=== PATIENT | male | born 1945 | race Caucasian/White ===

== ENCOUNTER → 2016-09-12 | Day surgery (SDC) | payer MEDICARE, OTHER ==
[~2016-09-12] MED LIST: AMLODIPINE BESY10 MG PO; B COMPLEX1 TAB PO; BENADRYL25 M3 PO; BENAZEPRIL HCL10 M2 PO; COUMADIN4 MG PO; GABAPENTIN300 MG PO; HCTZ; HYDROCHLOROTHIA25 MG PO; HYDROCODON-ACE1 EAC5 PO; HYDROCODON-ACE1 EAC7 PO; LASIX; LASIX PO; LORCET PLUS 7.1 EACH PO; LORTAB 7.5-3251 EACH PO; LOTENSIN20 MG PO; NEURONTIN300 MG PO; OCUVITE TABLET1 TA1 PO; TOPROL XL; TOPROL XL PO; TOPROL XL100 MG PO; VISION VITAMIN1 EACH PO; VITAMIN B-125000 MC1 PO
--- NOTE | ~2016-09-12 | HP ---
Unit #: [id number] #: [id number] Patient: MARIE WAGNER [id number] [address] [place], [place] [address] [id number] O MR#: [id number] NAME: MARIE WAGNER. ROOM: Age: 71 Sex: M Admission Date: 09/12/2016 : 1945 Attending Physician: Rolando Eli M.D. Referring Physician: Rolando Eli M.D. Primary Care Physician: Timmy Mane M.D. HISTORY AND PHYSICAL HISTORY AND EXAM Mr. Wagner is a 71-year-old gentleman who has had a previous tubulovillous polyp of the cecum that was surgically excised. He is due for surveillance colonoscopy. He is otherwise asymptomatic. PAST MEDICAL HISTORY 1. Hypertension. 2. Osteoarthritis. 3. Hypercholesterolemia. 4. History of spinal stenosis, status post surgery. 5. Bilateral knee replacement. 6. Left hip replacement. 7. Colonoscopy with polypectomy. 8. Appendectomy. 9. Prostate biopsy. 10. Macular degeneration. ALLERGIES No allergies to medications. MEDICATIONS Medications include: 1. Lotensin. 2. Toprol. 3. Hydrochlorothiazide. 4. Amlodipine. 5. Lasix. 6. Ocuvite. 7. Lortab. 8. Neurontin. 9. Vitamin B complex. FAMILY HISTORY Heart disease. SOCIAL HISTORY , two children. Denies the use of alcohol or tobacco. He is retired. REVIEW OF SYSTEMS Unremarkable. PHYSICAL EXAMINATION VITAL SIGNS: Temperature 98.9, blood pressure 123/73, heart rate 71 and Unit #: [id number] #: [id number] Patient: MARIE WAGNER regular, respirations 18. GENERAL: Awake, alert and oriented. HEENT: Unremarkable. CARDIAC: Regular rate and rhythm. LUNGS: Clear. ABDOMEN: Soft. EXTREMITIES: No edema. NEUROLOGICAL: Grossly intact. ASSESSMENT AND PLAN 71-year-old gentleman who is due for surveillance colonoscopy because of a history of a large polyp of the cecum that required surgical resection. He is otherwise asymptomatic at this time. We discussed the procedure including risks, benefits, complications, bowel prep. He understands and agrees to proceed. Dictated by Rolando Eli M.D. NENA/tj TD: 09/12/2016 07:49 JOB #: [id number] HISTORY AND PHYSICAL Page 1 of 1 X Rolando Eli MD HISTORY AND PHYSICAL
--- NOTE | ~2016-09-12 | OR ---
Unit #: [id number] #: [id number] Patient: MARIE WAGNER [id number] [facility]. [place], [place] [address] [id number] O MR#: [id number] NAME: MARIE WAGNER ROOM: Date of Procedure: 09/12/2016 Admission Date: 09/12/2016 Surgeon: Rolando Eli M.D. : 1945 Attending Physician: Rolando Eli M.D. Referring Physician: Rolando Eli M.D. Primary Care Physician: Timmy Mane M.D. OPERATIVE REPORT PRIMARY CARE PHYSICIAN Timmy Mane M.D. PREOPERATIVE DIAGNOSIS History of tubulovillous adenoma of cecum. POSTOPERATIVE DIAGNOSES Small cecal polyp and mild sigmoid diverticulosis. PROCEDURE PERFORMED Colonoscopy to cecum with cold biopsy forceps polypectomy x1 ANESTHESIA Monitored anesthesia. INDICATIONS FOR PROCEDURE A 71-year-old gentleman, who has had a previous large tubulovillous polyp of the cecum that was benign biopsy. It was too large to remove and he underwent a surgical excision. He is due for surveillance. DESCRIPTION OF PROCEDURE The patient was admitted to [facility], positively identified, and transported to the endoscopy unit. After appropriate monitoring and positioning, he was sedated by the nurse farm crew leader. On rectal examination, there was no significant anorectal pathology and the prostate was not abnormal to digital examination. Colonoscope was passed through the anal verge throughout the extent of the colon to the cecum. In the base of the cecum, there was a small area that I could not grossly tell might be some scar tissue or mucosal abnormality from his previous resection or if small 5 mm polyp. The area was completely excised using the cold biopsy forceps and sent to the laboratory. On antegrade and retrograde visualization, he had a few scattered diverticula on the sigmoid colon, but no other polyps, masses, or mucosal abnormalities were seen. The patient tolerated the procedure well and transported to recovery in stable condition. Findings were discussed with his . We will call him with results of the pathological evaluation of the biopsies and recommend followup at that time. Dictated by... Rolando Eli M.D. Unit #: [id number] #: [id number] Patient: MARIE WAGNER/agustin TD: 09/12/2016 08:12 JOB #: [id number] OPERATIVE REPORT Page 1 of 1 X Rolando Eli MD PROCEDURE OPERATIVE NOTE
== END | disposition home or self-care (01) ==
LOC: COPS 05:28
DX: Z12.11 Encounter for screening for malignant neoplasm of colon (principal); D12.0 Benign neoplasm of cecum; K57.30 Diverticulosis of large intestine without perforation or abscess without bleeding; Z86.010 Personal history of colon polyps; I10 Essential (primary) hypertension; M19.90 Unspecified osteoarthritis, unspecified site; E78.00 Pure hypercholesterolemia, unspecified; Z96.653 Presence of artificial knee joint, bilateral; Z96.642 Presence of left artificial hip joint; Z82.49 Family history of ischemic heart disease and other diseases of the circulatory system
CPT/HCPCS: 88305

== ENCOUNTER → 2017-01-01 | Outpatient (CLI) | payer MEDICARE, OTHER ==
--- NOTE | ~2017-01-01 | EKG ---
PATIENT: MARIE WAGNER UNIT #: [id number] Ventricular Rate: 68 BPM Atrial Rate: 68 BPM P-R Interval: 200 ms QRS Duration: 86 ms Q-T Interval: 408 ms QTC Calculation(Bezet): 433 ms P [place]: 27 degrees Calculated R [place]: 5 degrees Calculated T [place]: -2 degrees Diagnosis Line: Normal sinus rhythm Diagnosis Line: Normal ECG Diagnosis Line: When compared with ECG of 07-JUL-2015 11:21, Diagnosis Line: No significant change was found Diagnosis Line: Confirmed by COY LOU MD ([id number]) on Diagnosis Line: 01/01/2017 4:26:22 PM INTERPRETING MD: NORI
[2017-01-01 10:38] LABS: HEMATOCRIT 47.1 % (38.0-50.0); HEMOGLOBIN 15.5 gm/dL (13.0-16.0); MEAN CELL VOLUME 86.9 FL (83-96); MEAN CORPUSCULAR HEMOGLOBIN 28.7 PG (28-34); MEAN PLATELET VOLUME 9.8 FL (6.5-11.5); RED BLOOD COUNT 5.42 X10e (3.90-5.60); RED CELL DISTRIBUTION WIDTH 13.9 % (11.0-15.5); WHITE BLOOD COUNT 6.2 X10e3 (4.0-10.5)
[2017-01-01 11:02] LABS: CREATININE SERUM 0.9 mg/dL (0.6-1.4); GLOM FILT RATE Estimated 86.8 mL/min (>60)
== END | disposition home or self-care (01) ==
LOC: CAMB 09:52
PROVIDERS: Specialist
DX: Z01.818 Encounter for other preprocedural examination (principal); L72.0 Epidermal cyst
CPT/HCPCS: 36415; 80048; 85027; 93005

== ENCOUNTER → 2017-01-08 | Day surgery (SDC) | payer MEDICARE, OTHER ==
--- NOTE | ~2017-01-08 | OR ---
Unit #: [id number] #: [id number] Patient: MARIE WAGNER [id number] [facility]. [place], [place] [address] [id number] O MR#: [id number] NAME: MARIE WAGNER. ROOM: Date of Procedure: 01/08/2017 Admission Date: 01/08/2017 Surgeon: Rolando Eli M.D. : 1945 Attending Physician: Rolando Eli M.D. Primary Care Physician: Timmy Mane M.D. OPERATIVE REPORT PREOPERATIVE DIAGNOSIS Chronic recurrent sebaceous cyst of the back. POSTOPERATIVE DIAGNOSIS Chronic recurrent sebaceous cyst of the back. PROCEDURE PERFORMED Incisional biopsy of 4 x 2 cm sebaceous cyst at the base of the neck and a 5 x 3 cm cyst in the mid paraspinal area. ANESTHESIA General endotracheal anesthesia. ESTIMATED BLOOD LOSS 20 mL. INDICATIONS FOR PROCEDURE A 71-year-old gentleman, who has had longstanding sebaceous gland that he has treated conservatively and recently, he had several episodes of enlargement and infection. They were too large to remove in the office. So, we started the patient on antibiotics and brought him into the operating room today for definitive excision to prevent chronic recurrence and infection. DESCRIPTION OF PROCEDURE The patient was admitted to [facility], positively identified, transported to the operating room, and after induction of general endotracheal anesthesia, he received 1.5 g of vancomycin IV. He was placed in a lateral position with an axillary roll and appropriate padding on all pressure points and held in position using a beanbag. After being prepped and draped in usual sterile fashion, a wedge excision around both lesions was performed and then the cyst was excised en bloc with a cuff of normal tissue. I irrigated with saline and Betadine and obtained hemostasis. The deep space was closed with 2-0 Vicryl interrupted suture and the skin was closed with 2-0 nylon vertical mattress suture at the base of the neck. In the paraspinal area, again, a wedge excision with complete en bloc excision was performed. Again, I irrigated with saline and Betadine and closed the deep space with 2-0 Vicryl and the reapproximated the skin with 2-0 nylon. At both sites, 0.5% Marcaine with epinephrine was infiltrated for postop pain control. He had an exophytic seborrheic keratoses on his back which we scraped off the skin and applied Neosporin and Band-Aid. Telfa and Tegaderm were Unit #: [id number] #: [id number] Patient: MARIE WAGNER placed as occlusive sterile dressing. Sponges and needle counts were correct x3. The patient tolerated the procedure well and was transported to recovery in stable condition. Findings and postoperative instructions were discussed with his . Dictated by... Neil Cochran/agustin TD: 01/09/2017 02:41 JOB #: [id number] OPERATIVE REPORT Page 1 of 1 X Rolando Eli MD PROCEDURE OPERATIVE NOTE
== END | disposition home or self-care (01) ==
LOC: CSUR 06:28
DX: L72.0 Epidermal cyst (principal); L08.9 Local infection of the skin and subcutaneous tissue, unspecified; E78.5 Hyperlipidemia, unspecified; E80.6 Other disorders of bilirubin metabolism; I10 Essential (primary) hypertension; E66.9 Obesity, unspecified; M17.10 Unilateral primary osteoarthritis, unspecified knee; Z68.35 Body mass index [BMI] 35.0-35.9, adult; Z96.642 Presence of left artificial hip joint; Z96.651 Presence of right artificial knee joint; Z90.49 Acquired absence of other specified parts of digestive tract; Z98.890 Other specified postprocedural states
CPT/HCPCS: 88304; J0330; J1885; J2250; J2710; J3010; J3370